=== PATIENT | female | born 1985 | race Hispanic/Latino ===

== ENCOUNTER 2020-07-08 13:52 | Outpatient (CLI) | payer BC, OTHER ==
--- NOTE | 2020-07-08 15:13 | ULT ---
OB ULTRASOUND: INDICATION: anatomy. FINDINGS: There is a single viable intrauterine . Gestational age by ultrasound is 24 weeks 1 day. BIOMETRY: BPD 24 weeks 2 days HC 24 weeks 2 days AC 24 weeks 5 days FL 23 weeks 1 day EFW: 650 grams, 23 weeks 6 days. heart rate: 139 b.p.m. Placenta: Anterior. Presentation: Vertex. Amniotic fluid: Within normal range. ALEJANDRO recorded at 15.8 cm. Cervical length: 4.2 cm. Anatomy: Intracranial contents, 4 chamber heart, stomach, kidneys, cord insertion, bladder, spine, l ips, nose, extremities, and 3-vessel cord were all imaged. No abnormality identified. IMPRESSION: A 24-week 1-day gestational age by ultrasound measurement. No abnormality identified. POS: AGW
== END 2020-07-08 13:53 | disposition home or self-care (01) ==
LOC: BICULT 13:52
PROVIDERS: ATTEND Family Medicine
DX: O09.42 Supervision of pregnancy with grand multiparity, second trimester (principal); Z3A.24 24 weeks gestation of pregnancy
CPT/HCPCS: 76805

== ENCOUNTER 2020-07-26 03:51 | Emergency (ER) | payer BC, OTHER | END 2020-07-26 05:21 | disposition home or self-care (01) | LOC: ERS 03:51 | DX: O99.512 Diseases of the respiratory system complicating pregnancy, second trimester (principal); J06.9 Acute upper respiratory infection, unspecified; Z3A.27 27 weeks gestation of pregnancy ==